=== PATIENT | female | born 1945 | race Caucasian/White ===

== ENCOUNTER → 2024-02-05 | Outpatient (CLI) | payer MEDICARE ==
[~2024-02-05] MED LIST: CITALOPRAM40 MG PO; DESYREL 100MG100 MG PO; HCTZ 25MG25 MG PO; MELOXICAM15 MG PO; SIMVASTATIN40 M1 PO; TOPROL XL 25MG25 MG PO
== END ==
LOC: RAD 08:49
DX: M79.661 Pain in right lower leg (principal)